=== PATIENT | female | born 1960 | race Caucasian/White ===

== ENCOUNTER → 2017-08-29 | Outpatient (CLI) | payer OTHER ==
[~2017-08-29] MED LIST: ACYCLOVIR400 MG PO; ARTHROTEC 751 TABLET PO; ASPIR-LOW81 MG PO; AUGMENTIN875 MG PO; FISH OIL 1,0001 EAC7 PO; FUROSEMIDE40 MG PO; HYDROCODON-ACE1 EAC7 PO; LEVOTHYROXINE125 MCG PO; METFORMIN HCL500 MG PO; MICARDIS80 MG PO; MULTIVITAMIN1 EAC2 PO; NAPROXEN SODIU220 M1 PO; NORVASC5 MG PO; SIMVASTATIN5 MG PO; ULTRAM50 MG PO; VICODIN 5-3001 EACH PO; VISTARIL25 MG PO
== END | disposition home or self-care (01) ==
LOC: EKG 08-28 13:00
DX: I07.1 Rheumatic tricuspid insufficiency (principal); I27.20 Pulmonary hypertension, unspecified; I70.0 Atherosclerosis of aorta
CPT/HCPCS: 93306

== ENCOUNTER → 2017-12-11 | Outpatient (CLI) | payer OTHER | END | disposition home or self-care (01) | LOC: RAD 16:17 | DX: M17.12 Unilateral primary osteoarthritis, left knee (principal) | CPT/HCPCS: 73560 ==